=== PATIENT | male | born 1975 | race Caucasian/White ===

== ENCOUNTER 2023-07-06 15:46 | Emergency (ER) | payer OTHER, BC ==
[~2023-07-06] VITALS: Ht 167.6 cm; Wt 81.6 kg
[2023-07-06 16:06] VITALS: BP 103/65; PULSE 88; RESP 18; TEMP 97; O2SAT 98
[2023-07-06] MEDS ORDERED: MORPHINE SULFATE 4 MG/ML SYR IVP ONE (16:20)
[2023-07-06] MEDS ORDERED: fentaNYL citrate 0.05 MG/ML VIAL IVP ONE ×2 (18:45→20:30)
[2023-07-06] MEDS ORDERED: PROPOFOL 200 MG/20 ML VIAL IV ONE (18:45)
[2023-07-06] MEDS ORDERED: ACET-5629 PO ×3 (21:22→23:02)
[2023-07-06 22:15] VITALS: BP 135/79; PULSE 90; RESP 19; TEMP 97; O2SAT 96
== END 2023-07-06 22:15 | disposition home or self-care (01) ==
LOC: MED 15:46
DX: S52.591A Other fractures of lower end of right radius, initial encounter for closed fracture (principal); M25.572 Pain in left ankle and joints of left foot; V49.88XA Car occupant (driver) (passenger) injured in other specified transport accidents, initial encounter; Y93.89 Activity, other specified; Y92.89 Other specified places as the place of occurrence of the external cause; Y99.8 Other external cause status
CPT/HCPCS: 25605; 70450; 72125; 73100; 73110; 73610; 96374; 96375; 99285; J2270; J2704; J3010; Q0092